=== PATIENT | female | born 1925 | race Caucasian/White ===

== ENCOUNTER → 2016-08-18 | Outpatient (CLI) | payer OTHER, MEDICARE ==
[~2016-08-18] MED LIST: NORVASC 5 MG TAB5 MG PO; PROTONIX40 M1 PO; SYNTHROID50 MCG PO; TOPROL XL25 MG PO
== END ==
LOC: HYPER 07:48
DX: S81.801D Unspecified open wound, right lower leg, subsequent encounter (principal); Z87.891 Personal history of nicotine dependence; X58.XXXD Exposure to other specified factors, subsequent encounter